=== PATIENT | female | born 1970 | race Caucasian/White ===

== ENCOUNTER → 2018-11-11 08:54 | Outpatient (CLI) | payer OTHER, SELFPAY ==
--- NOTE | 2018-11-11 | PATH_ITS ---
Note [facility] Accession Number: [id number] TESTS RESULT FLAG UNITS REF RANGE LAB Clinician Provided Cytology Information No. of containers..01 ThinPrep Vial No. of containers..10 Previously Prepared Cytology Slide R SUP THYROID NODULE DIAGNOSIS: R SUP THYROID NODULE BENIGN SPECIMEN CONSISTS OF BENIGN FOLLICULAR CELLS, HEMOSIDERIN-LADEN MACROPHAGES, COLLOID, AND BLOOD. THIS PATTERN IS CONSISTENT WITH A COLLOID NODULE. Pathologist ICD10: 02 E04.1 02 Morteza Roger MD, Pathologist NPI- [id number] Nicholas Pat, Special Certificate Dictator ([facility]) 01 30 CC, COLORLESS, CLEAR RECEIVED: 5 ALCOHOL FIXED AND 5 QUICK STAINED SLIDES. /VDU FLAG LEGEND: L-Low Normal,H-High Normal,LL-Alert Low,HH-Alert High <-Panic Low,>-Panic High,A-Abnormal,AA-Critical Abnormal Performed at: 01 =Z [facility] [address], [place] [address] Edmond Purvis MD, 02 [facility] [address] [place] [phone] Marianne Larios MD, Performed at: 01 [facility] [address], [place], [place] [id number] MD Edmond Purvis MD Phone: [phone]
--- NOTE | 2018-11-11 | DI.US.S_ITS ---
PROCEDURE: US FINE NEEDLE ASPIRATION, 2 separate thyroid masses were biopsied, one on the right and one on the left. INDICATIONS: MULTINODULAR GOITER, 2 separate thyroid masses were requested to be biopsied, one on the right and one on the left. TECHNIQUE: The indications, alternatives, benefits, risks, and complications of the procedure were explained to the patient. Written informed consent was obtained and placed in the chart. The thyroid region was examined sonographically and a site was chosen for ultrasound guided percutaneous sampling. The skin was prepared and draped in the usual fashion, and anesthetized with 1% lidocaine infiltrated from the skin down to the thyroid gland. Multiple passes were then performed, with contents emptied into an appropriate pathology specimen container. A bandage was applied to the area of access at completion of the study. The initial biopsy was located at the upper third of the right thyroid lobe and a second biopsy was located at the lower third of the left thyroid lobe COMPARISON: [facility], , US SOFT TISSUE HEAD OR NECK, 10/23/2018, 8:34. FINDINGS: Location(s) of lesion(s) sampled: Lesion #1 was at the upper third of the right thyroid lobe. Lesion #2 was at the lower third of the left thyroid lobe. [place]: 25 gauge hypodermic needles. Number of passes: 6 passes were utilized for each of the 2 separate thyroid masses, 12 total Medications: 1% lidocaine for local anaesthesia. Complications: None. IMPRESSION: Successful ultrasound-guided thyroid nodule fine needle aspiration of 42 separate thyroid masses, as discussed above, one on the right and one on the left. These are labeled #1 and #2, respectively, with cytology results pending. Please see chart below for management recommendations based on cytology results. [facility] ReportingRecommendationsNon-diagnostic* Repeat US-guided FNA, with on-site cytology evaluation if possible. * Repeated non-diagnostic nodules without high suspicion US features: close observation vs surgical consult. * Consider surgery if nodule has high suspicion US features, grows >20% in 2 dimensions on followup, or patient has clinical risk factors for malignancy. Benign* If nodule has high suspicion US features: repeat US and FNA within 12 months. * If nodule has low to intermediate suspicion US features: repeat US at 12-24 months. If nodule grows (20% increase in at least 2 dimensions, with minimal increase of 2 mm or >50% change in volume), or development of new suspicious US features, then repeat FNA or continue followup. * If nodule has very low suspicion US features: followup US at >24 months. Atypia of undetermined significance, follicular lesion of undetermined significanceRepeat FNA, molecular testing, followup US, or surgical consult.Follicular neoplasm, suspicious for follicular neoplasmSurgical consult; also consider molecular testing. Suspicious for malignancySurgical consult.MalignantSurgical consult. Dictated by: Eddie Schulte M.D. on 11/11/2018 at 12:09 Approved by: Eddie Schulte M.D. on 11/11/2018 at 12:12
--- NOTE | 2018-11-11 | PATH_ITS ---
Note [facility] Accession Number: [id number] TESTS RESULT FLAG UNITS REF RANGE LAB Clinician Provided Cytology Information No. of containers..01 ThinPrep Vial No. of containers..08 Previously Prepared Cytology Slide 01 L INF THYROID NODULE DIAGNOSIS: 02 L INF THYROID NODULE BENIGN SPECIMEN CONSISTS OF BENIGN FOLLICULAR CELLS, HEMOSIDERIN-LADEN MACROPHAGES, COLLOID, AND BLOOD. THIS PATTERN IS CONSISTENT WITH A COLLOID NODULE. Pathologist ICD10: 02 E04.1 02 Morteza Roger MD, Pathologist NPI- [id number] Pasquale Rodríguez, Data Support Specialist ([facility]) 01 30 CC, COLORLESS, CLEAR RECEIVED: 4 ALCOHOL FIXED AND 4 QUICK STAINED SLIDES. /VDU FLAG LEGEND: L-Low Normal,H-High Normal,LL-Alert Low,HH-Alert High <-Panic Low,>-Panic High,A-Abnormal,AA-Critical Abnormal Performed at: 01 =Z [facility] [address], [place] [address] Edmond Purvis MD, 02 [facility] [address] [place] [phone] Marianne Larios MD, Performed at: 01 [facility] [address], [place], [place] [id number] MD Edmond Purvis MD Phone: [phone]
== END ==
PROVIDERS: Family Provider Physician Assistant Medical; PCP Physician Assistant Medical; Visit Provider Physician Assistant Medical
DX: E04.2 Nontoxic multinodular goiter (principal)
CPT/HCPCS: 10005; 10006

== ENCOUNTER → 2019-01-20 12:44 | Outpatient (CLI) | payer OTHER, SELFPAY ==
--- NOTE | 2019-01-20 | DI.US.S_ITS ---
LIMITED ULTRASOUND OF LEFT BREAST AND AXILLA: 01/20/2019 CLINICAL: Lt breast palp lumps. Comparison is made to exams dated: 01/20/2019 mammogram, 01/02/2017 ultrasound, 01/02/2017 mammogram - [facility], and 06/21/2012 mammogram - [facility]. Color flow and real-time ultrasound of the left breast 3-5 o'clock, and axilla regions were performed. Powell scale images of the real-time examination were reviewed. No abnormalities were seen sonographically in the left breast. Normal morphology and size of lymph nodes present in the axilla. IMPRESSION: PROBABLY BENIGN No sonographic abnormality to correspond to patients palpable region in the lateral left breast. A follow-up left mammogram in 6 months is recommended to demonstrate stability. Normal axillary contents. Findings and recommendations were conveyed to the patient at time of exam. This exam was interpreted at Station ID: [id number]. Electronically Signed By: Dorinda hernandez/:01/20/2019 14:51:22 copy to: Apolonia Traylor letter sent: Followup Recommended Ultrasound BI-RADS: 3 Probably benign
--- NOTE | 2019-01-20 | DI.MG.S_ITS ---
BILATERAL DIGITAL DIAGNOSTIC MAMMOGRAM 3D/2D: 01/20/2019 CLINICAL: Palpable left breast lump. Comparison is made to exams dated: 08/06/2017 mammogram, 01/02/2017 mammogram - [facility], and [facility]21/[facility]. The tissue of both breasts is heterogeneously dense. This may lower the sensitivity of mammography. No significant masses, calcifications, or other findings are seen in either breast. Normal sized and morphology lymph nodes are seen in the left axilla. IMPRESSION: INCOMPLETE: NEEDS ADDITIONAL IMAGING EVALUATION There are no abnormalities seen in the left breast to correspond with the palpable abnormality at 2 to 3 o'clock in the middle to posterior depth, however, ultrasound is recommended. Normal left axillary lymph nodes appear stable. Ultrasound of left breast and axilla was performed immediately following this exam. This exam was interpreted at Station ID: [id number]. NOTE: For mammograms, a report in lay terms will be sent to the patient. Approximately 15% of breast malignancies will not be visualized mammographically. In the management of a palpable breast mass, a negative mammogram must not discourage biopsy of a clinically suspicious lesion. Electronically Signed By: Dorinda hernandez/:01/20/2019 14:47:25 copy to: Apolonia SINCLAIR BI-RADS Category 0: Incomplete [id number]
== END ==
PROVIDERS: PCP Physician Assistant Medical; Visit Provider Physician Assistant
DX: R92.8 Other abnormal and inconclusive findings on diagnostic imaging of breast (principal); N63.21 Unspecified lump in the left breast, upper outer quadrant
CPT/HCPCS: 76642; 77066; G0279

== ENCOUNTER 2020-05-15 14:11 | Emergency (ER) | payer OTHER, SELFPAY ==
[2020-05-15 14:18] VITALS: BP 179/105; PULSE 100; RESP 16; TEMP 37; O2SAT 100
--- NOTE | 2020-05-15 14:43 | DI.CT.S_ITS ---
PROCEDURE: CT CERVICAL SPINE WO CON INDICATIONS: s/p fell on face tripped on a dog, pain in nose and c spine TECHNIQUE: Noncontrast 3 mm thick sections acquired from the skull base to the T4 level. Sagittal and coronal reformats were then constructed. For radiation dose reduction, the following was used: automated exposure control, adjustment of mA and/or kV according to patient size. COMPARISON: [facility], CT, CT FACIAL BONES WO CON, 05/15/2020, 15:22. FINDINGS: Image quality: Excellent. Bones: No fractures or dislocations. Visualized superior ribs are intact. Degenerative changes are seen, with mild disc space narrowing at C5-C6 and moderate disc space narrowing at C6-C7. Endplate irregularity and sclerosis are seen. Posteriorly projected endplate osteophytes are seen at C6-C7. Soft tissues: Prevertebral soft tissues are normal in thickness. No paravertebral hematomas. No apical pneumothoraces. Low-density nodules are seen involving the thyroid, with the largest seen on the right measuring 2.2 cm. IMPRESSION: Negative for fracture. Cervical spine degenerative changes are seen, which are most prominent at C6-C7. Bilateral thyroid nodules are incidentally noted, with the largest on the right measuring up to 2.2 cm. When clinically appropriate, please consider a dedicated thyroid ultrasound for further evaluation. Dictated by: Dc Jenkins M.D. on 05/15/2020 at 14:32 Approved by: Dc Jenkins M.D. on 05/15/2020 at 14:35
--- NOTE | 2020-05-15 14:43 | DI.CT.S_ITS ---
PROCEDURE: CT FACIAL BONES WO CON INDICATIONS: s/p fell on face tripped on a dog, pain in nose and neck TECHNIQUE: Noncontrast 2.5 mm thick axial images acquired from the mandible through the frontal sinuses, with coronal and sagittal reformatting. For radiation dose reduction, the following was used: automated exposure control, adjustment of mA and/or kV according to patient size. COMPARISON: [facility], CT, CT CERVICAL SPINE WO CON, 05/15/2020, 15:22. [facility], MR, STROKE PROTOCOL, 05/12/2011, 7:49. [facility], CT, HEAD WITHOUT CONTRAST, 05/11/2011, 19:03. FINDINGS: Image quality: Excellent. Bones and teeth: Orbital peres are intact. Sinus peres show no fracture or deformity. There is mild rightward nasal septal deviation seen, which is chronic and is not attributed to an acute injury. Nasal bones and septum are intact. Visualized portions of the mandible demonstrate no fractures or subluxation. Zygomatic arches are intact. Pterygoid plates are intact. Visualized portions of the skull base and auditory canals are intact. The patient is edentulous. A prominent sella turcica can be seen. Sinuses: Paranasal sinuses are aerated, without fluid levels, mucosal thickening, or mucoceles. Mastoid air cells are aerated. Soft tissues: No edema, masses, or fluid collections. No enlarged lymph nodes. No soft tissue lacerations or debris. Vascular: Visualized vascular structures appear normal in the absence of contrast. Bony vascular foramina and canals are intact. IMPRESSION: No displaced fractures are seen, including no displaced nasal bone fractures. A prominent sella turcica is incidentally noted. If this patient has clinical suspicion for a pituitary abnormality, then please consider a dedicated follow-up pituitary protocol MRI (without and with contrast) for further evaluation (assuming that there is no contraindication). Dictated by: Dc Jenkins M.D. on 05/15/2020 at 14:35 Approved by: Dc Jenkins M.D. on 05/15/2020 at 14:37
--- NOTE | 2020-05-15 14:48 | ED_ITS ---
HPI - Fall <West APRIL Valerio - Last Filed: 05/15/20 22:23> General Chief Complaint: Nasal Problem Stated Complaint: tripped over dog/possible broken nose Time Seen by Provider: 05/15/20 14:17 Source: patient Mode of arrival: Ambulatory Limitations: no limitations History of Present Illness HPI Narrative: This is a 50-year-old female, nonsmoker, who has history of chronic low back pain, hypertension, presents to ED with her significant other with chief complain of facial/nose pain and swelling, worsening low back pain, bilateral wrist and knee pain after she accidentally tripped over her dog in dark room and landed on her hands, knees but took the force on nose directly while wearing a glasses. She reports her hands and knees did not protect her from falling on her face. Her glasses flew off of her face while falling. Patient and her spouse heard crack when she fell on the carpeted floor and concerns for nasal fracture. Patient reports is able to move her bilateral w rist and hands without difficulty. She is able to flex and extend her bilateral knees and was able to bear weight. Patient reports slightly increased severity of low back pain but location and characteristic have not changed. Patient states she bled from her nose immediately after the injury which has stopped now by using ice pack. She also complains nausea and headache at this time. Related Data Home Medications Medication Instructions Recorded Confirmed ALBUTEROL SULFATE (Ventolin / 1 - 2 puff INH PRN #0 12/13/09 Proventil) venlafaxine [Effexor XR] 75 mg PO HS #0 05/12/11 buprenorphine [Butrans] 20 mcg TOPICAL QWEEK #0 tdm 06/03/13 metoprolol tartrate 25 mg PO QDAY #0 06/03/13 olopatadine [Patanol] 0.1 % OPHTH #5 ml 06/03/13 ropinirole [Requip] 1 mg PO HS #0 tab 06/03/13 diclofenac sodium [Voltaren] 1 irais TOPICAL #0 08/11/17 acetaminophen-codeine tab 05/15/20 Previous Rx's Medication Instructions Recorded cyclobenzaprine 5 - 10 mg PO BID PRN #7 tab 05/15/20 Allergies Allergy/AdvReac Type Severity Reaction Status Date / Time clindamycin [CLINDAMYCIN] Allergy Unknown GI UPSET, Unverified 12/16/17 11:51 DIARRHEA crab [CRAB] Allergy Unknown THROAT Unverified 12/16/17 11:51 SWELLING Sulfa (Sulfonamide Allergy Unknown Unverified 12/16/17 11:51 Antibiotics) [SULFA (SULFONAMIDE ANTIBIOTICS)] sulfite [SULFITE] Allergy Unknown HIVES Unverified 12/16/17 11:51 bee venom protein (honey bee) Allergy Verified 05/15/20 14:21 Review of Systems <APRIL Dubon - Last Filed: 05/15/20 22:23> Review of Systems Narrative: General: Denies fever, chills, fatigue, malaise, sweats. HEENT: See HPI Respiratory: Denies dyspnea, cough, wheezing, hemoptysis, sputum. Cardiovascular: Denies chest pain, palpitations, orthopnea, edema. Gastrointestinal: Denies (+) nausea, vomiting, abdominal pain, diarrhea, constipation, melena. : Denies dysuria, frequency, incontinence, hematuria, urinary retention. Musculoskeletal: See HPI Skin: Swelling to nose tip and bridge with slight superficial abrasion on nasal bridge. Neurologic: Denies weakness, (+) headache, numbness, change in speech, confusion, seizures, incoordination. Psychiatric: No concerning psychosocial issues. 12-point review of systems is negative except for those stated above. Patient History <APRIL Dubon - Last Filed: 05/15/20 22:23> Medical History Asthma (Acute) Chronic low back pain (Acute) Hypertension (Acute) Social History Smoking Status: Never smoker Smoking Status: Never smoker Substance Use Type: does not use Exam <APRIL Dubon - Last Filed: 05/15/20 22:23> Narrative Exam Narrative: GEN: Alert, oriented x 3, well appearing and nourished, and in no acute distress. Head: Normal cephalic, atraumatic. No scalp or temporal tenderness, palpable mass or rash. EYES: Pupils are equal, round, and reactive to light and accommodation. Extraocular muscles are intact bilaterally. There is no subconjunctival hemorrhage, exudate and sclera non-icteric. ENT: Bilateral auditory canals and tympanic membranes clear or no drainage. Hearing grossly intact. Nose with scant amount nasal bleed from left nares, no purulent discharge or deviation. There is mild swelling to nasal tip. Small abrasion in nasal bridge. Nose exquisitely tender to palpate. Mucous membrane moist, no mucosal lesion. Throat without erythema, tonsillar hypertrophy or exudate. Uvula in midline, airway patent. Neck: Trachea in midline. No JVD, non-tender without lymphadenopathy. No masses or thyroid megaly. Supple and no meningeal signs. Mid cervical tenderness to palpate. No step-offs. CARDIAC: Normal regular rate and rhythm without murmurs, gallops, or rubs. No chest wall tenderness. No peripheral edema, cyanosis or pallor. Capillary refill is less than 2 seconds. RESPIRATORY: Lungs are clear to auscultate bilaterally. No cough, wheezes, rales, or rhonchi. No stridor, respiratory distress, increase work of breathing, or accessary muscle used. ABD: Abdomen soft, nontender and non-distended. No guarding or rebound tenderness to palpate. Bowel sounds are normal in all 4 quadrants. There is no palpable masses or organomegaly. EXT: Full painless ROM of all extremities with no loss of sensation, strength, effusion or edema. SKIN: Warm, dry, normal color for patient. No erythema, lesions or rash over visible areas. BACK: Nontender without deformity or crepitance. No flank tenderness. NEUROLOGICAL: Alert and oriented to place, time and person. Sensation and motor function intact bilaterally. No facial droops, dysphasia. PSYCHIATRIC: Good judgement and reason, without hallucinations, abnormal affect or abnormal behaviors during the examination. Patient is not suicidal. Initial Vital Signs Initial Vital Signs: Vital Signs Temperature 98.6 F 05/15/20 14:18 Pulse Rate 100 H 05/15/20 14:18 Respiratory Rate 16 05/15/20 14:18 Blood Pressure 179/105 H 05/15/20 14:18 Pulse Oximetry 100 05/15/20 14:18 <Afua Gutierrez MD - Last Filed: 05/16/20 20:18> Initial Vital Signs Initial Vital Signs: Vital Signs Temperature 98.6 F 05/15/20 14:18 Pulse Rate 100 H 05/15/20 14:18 Respiratory Rate 16 05/15/20 14:18 Blood Pressure 179/105 H 05/15/20 14:18 Pulse Oximetry 100 05/15/20 14:18 Scores <West BenitezAPRIL murray - Last Filed: 05/15/20 22:23> ABCD2 Citation: Lancet. 2006Oct 03;369(5599):710-80. Validation and refinement of scores to predict very early stroke risk after transient ischaemic attack. Kade SC1, Pily PM, Atilio MN, Bradley MF, Yoni JS, Chacho AL, Pierre S. GCS [place] coma scale eye opening: Spontaneous Timo coma scale verbal response: Orientated Timo coma scale motor response: Obey commands Timo coma scale total score: 15 Nexus Score for C-Spine Focal Neurologic deficit present: No Midline spinal tenderness present: Yes Altered level of conciousness present: No Intoxication present: No Distracting Injury Present: Yes Nexus Criteria for C-spine: 2 Course <APRIL Dubon - Last Filed: 05/15/20 22:23> Orders Ordered: Discontinued Medications Bacitracin (Bacitracin) 1 applic TOP NOW ONE Stop: 05/15/20 16:18 Last Admin: 05/15/20 16:44 Dose: 1 applic Documented by: MINNIE Ibuprofen (Advil) 400 mg PO NOW ONE Stop: 05/15/20 14:46 Last Admin: 05/15/20 15:11 Dose: 400 mg Documented by: MINNIE Ondansetron HCl (Zofran Odt) 4 mg SL NOW ONE Stop: 05/15/20 14:44 Last Admin: 05/15/20 15:11 Dose: 4 mg Documented by: MINNIE Vital Signs Vital signs: Vital Signs - 8 hr 05/15/20 14:18 05/15/20 16:44 Temperature 98.6 F Pulse Rate 100 H 74 Respiratory Rate 16 Blood Pressure 179/105 H 137/92 H Pulse Oximetry 100 100 <Afua Gutierrez MD - Last Filed: 05/16/20 20:18> Orders Ordered: Discontinued Medications Bacitracin (Bacitracin) 1 applic TOP NOW ONE Stop: 05/15/20 16:18 Last Admin: 05/15/20 16:44 Dose: 1 applic Documented by: MINNIE Ibuprofen (Advil) 400 mg PO NOW ONE Stop: 05/15/20 14:46 Last Admin: 05/15/20 15:11 Dose: 400 mg Documented by: MINNIE Ondansetron HCl (Zofran Odt) 4 mg SL NOW ONE Stop: 05/15/20 14:44 Last Admin: 05/15/20 15:11 Dose: 4 mg Documented by: MINNIE Vital Signs Vital signs: Vital Signs - 8 hr 05/15/20 14:18 05/15/20 16:44 Temperature 98.6 F Pulse Rate 100 H 74 Respiratory Rate 16 Blood Pressure 179/105 H 137/92 H Pulse Oximetry 100 100 MDM - Fall <APRIL Dubon - Last Filed: 05/15/20 22:23> Differential Diagnosis Differential diagnosis: Likely other (Nasal fracture, nasal contusion, C-spine fracture, neck strain, knee and wrist strain) Medical Records Attestation: I reviewed the patient's medical records. Imaging Data CT-Face: Radiologist's Impression: [place] [address] CT Scan Report Signed Patient: Tricia Jaramillo R#: [id number] : 1970Acct:[id number] Age/Sex: 50 / FDate of Service: 05/15/20 Loc: ED Accession Number: [id number] Procedure: CT facial bones wo con Ordering Provider: West Valerio PROCEDURE: CT FACIAL BONES WO CON INDICATIONS: s/p fell on face tripped on a dog, pain in nose and neck TECHNIQUE: Noncontrast 2.5 mm thick axial images acquired from the mandible through the frontal sinuses, with coronal and sagittal reformatting. For radiation dose reduction, the following was used: automated exposure control, adjustment of mA and/or kV according to patient size. COMPARISON: [facility], CT, CT CERVICAL SPINE WO CON, 05/15/2020, 15:22. [facility], MR, STROKE PROTOCOL, 05/12/2011, 7:49. [facility], CT, HEAD WITHOUT CONTRAST, 05/11/2011, 19:03. FINDINGS: Image quality: Excellent. Bones and teeth: Orbital peres are intact. Sinus peres show no fracture or deformity. There is mild rightward nasal septal deviation seen, which is chronic and is not attributed to an acute injury. Nasal bones and septum are intact. Visualized portions of the mandible demonstrate no fractures or subluxation. Zygomatic arches are intact. Pterygoid plates are intact. Visualized portions of the skull base and auditory canals are intact. The patient is edentulous. A prominent sella turcica can be seen. Sinuses: Paranasal sinuses are aerated, without fluid levels, mucosal thickening, or mucoceles. Mastoid air cells are aerated. Soft tissues: No edema, masses, or fluid collections. No enlarged lymph nodes. No soft tissue lacerations or debris. Vascular: Visualized vascular structures appear normal in the absence of contrast. Bony vascular foramina and canals are intact. IMPRESSION: No displaced fractures are seen, including no displaced nasal bone fractures. A prominent sella turcica is incidentally noted. If this patient has clinical suspicion for a pituitary abnormality, then please consider a dedicated follow-up pituitary protocol MRI (without and with contrast) for further evaluation (assuming that there is no contraindication). Dictated by: Dc Jenkins M.D. on 05/15/2020 at 14:35 Approved by: Dc Jenkins M.D. on 05/15/2020 at 14:37 CT- C spine: Radiologist's Impression: [place] [address] CT Scan Report Signed Patient: Tricia Jaramillo R#: [id number] : 1970Acct:[id number] Age/Sex: 50 / FDate of Service: 05/15/20 Loc: ED Accession Number: [id number] Procedure: CT cervical spine wo con Ordering Provider: West Valerio PROCEDURE: CT CERVICAL SPINE WO CON INDICATIONS: s/p fell on face tripped on a dog, pain in nose and c spine TECHNIQUE: Noncontrast 3 mm thick sections acquired from the skull base to the T4 level. Sagittal and coronal reformats were then constructed. For radiation dose reduction, the following was used: automated exposure control, adjustment of mA and/or kV according to patient size. COMPARISON: [facility], CT, CT FACIAL BONES WO CON, 05/15/2020, 15:22. FINDINGS: Image quality: Excellent. Bones: No fractures or dislocations. Visualized superior ribs are intact. Degenerative changes are seen, with mild disc space narrowing at C5-C6 and moderate disc space narrowing at C6-C7. Endplate irregularity and sclerosis are seen. Posteriorly projected endplate osteophytes are seen at C6-C7. Soft tissues: Prevertebral soft tissues are normal in thickness. No paravertebral hematomas. No apical pneumothoraces. Low-density nodules are seen involving the thyroid, with the largest seen on the right measuring 2.2 cm. IMPRESSION: Negative for fracture. Cervical spine degenerative changes are seen, which are most prominent at C6-C7. Bilateral thyroid nodules are incidentally noted, with the largest on the right measuring up to 2.2 cm. When clinically appropriate, please consider a dedicated thyroid ultrasound for further evaluation. Dictated by: Dc Jenkins M.D. on 05/15/2020 at 14:32 Approved by: Dc Jenkins M.D. on 05/15/2020 at 14:35 [facility] Narrative Medical decision making narrative: This is a 50-year-old female who fell on her face after she tripped on a dog in a dark room and complaining of pain in nose, head and nausea. No loss of consciousness, vomiting, vision change, unusual behaviors, or seizures. Patient has no focal neurological deficit. Mild mid cervical tenderness to palpate during exam. Nexus C-spine score was 2. Patient was medicated with Zofran and ibuprofen and she had taken her own T3. Applied rigid C-collar after the exam. CT test of facial bones does not show displaced facial fractures including nasal bones. Incidental finding of prominent sella turcica. CT C-spine was negative for fracture but shows DJD at C6-7. Incidental findings of bilateral thyroid nodule with the largest on the right measuring up to 2.2 cm. Pain improved after the medication regimen with improved nausea. Has been using cool packs on her face which has been helping. Findings were discussed with patient and advised to follow with her primary care physician including incidental findings. Patient discharged to home with small dose of Flexeril for muscle relaxant with precautions. Patient advised to use [id number] ibuprofen and her own pain medication regimen. Return precautions were discussed with patient and patient verbalized understanding and agreement with treatment plan. Discharge Plan Departure Patient Disposition: Home Clinical Impression: Contusion of nose, initial encounter Cervical strain Qualifiers: Encounter type: initial encounter Qualified Code(s): S16.1XXA - Strain of muscle, fascia and tendon at neck level, initial encounter Fall Qualifiers: Encounter type: initial encounter Qualified Code(s): W19.XXXA - Unspecified fall, initial encounter Discharge Date/Time: 05/15/20 16:45 Instructions: DI for Contusion Activity Restrictions/Additional Instructions: You have been diagnosed with [nasal contusion and neck strain from a fall. Facial and C spine CT test no nasal fractures or C spine fractures or dislocations. Incidental finding of prominent sella turcia and and enlarged right side thyroid ]. What to do: *Take your medications as directed. You can use your Tylenol 3 and Butrans as needed. You can add [id number] ibuprofen 400-600 mg up to 3 to 4 times a day as needed for pain and inflammation but with food to decrease GI irritation. Please use cool pack on your face to decrease swelling and and pain. Please sleep with slightly increased head of bed to help with swelling. Please follow- up with your primary care physician on tetanus immunization tomorrow. Will transmit Flexeril for muscle relaxant to [facility] in [place]. This can cause drowsiness so please take precaution not driving, drink alcohol or operating heavy equipments. *Follow up with your primary care provider in 2-3 days, call for an appointment. Let them know you were seen in the ED and that we asked you to be seen in follow up. *Return to ED if you have any new, worsening, or concerning symptoms, such as [chest pain, breathing difficulty, unable to tolerate fluids, fever, signs of infection on nose, worsening pain or any acute concerns]. Prescriptions: New cyclobenzaprine 10 mg tablet 5 - 10 mg PO BID PRN (Reason: muscle spasm) Qty: 7 RF: 0 No Action ALBUTEROL SULFATE (Ventolin / Proventil) 1 - 2 puff INH PRN Qty: 0 RF: 0 venlafaxine [Effexor XR] 75 MG capsule,extended release 24hr 75 mg PO HS Qty: 0 RF: 0 ropinirole [Requip] 1 MG tablet 1 mg PO HS Qty: 0 RF: 0 metoprolol tartrate 25 MG tablet 25 mg PO QDAY Qty: 0 RF: 0 buprenorphine [Butrans] 20 MCG patch weekly 20 mcg Topical QWEEK Qty: 0 RF: 0 olopatadine [Patanol] 5 ML drops 0.1 % OPHTH Qty: 5 RF: 0 diclofenac sodium [Voltaren] 1 % gel 1 irais Topical Qty: 0 RF: 0 acetaminophen-codeine 300-30 mg tablet RF: 0 Referrals: Apolonia Traylor PA-C [Primary Care Provider] - <Afua Gutierrez MD - Last Filed: 05/16/20 20:18> Cosign ED Attending Cosignature Attestation: I was immediately available in the department for consultation throughout this patient's visit. I agree with documentation as above. Afua Gutierrez MD
[2020-05-15] MEDS: IBUPROFEN 400 MG TABLET PO (15:11)
[2020-05-15] MEDS: ONDANSETRON 4 MG ODT SL (15:11)
[2020-05-15 16:44] VITALS: BP 137/92; PULSE 74; O2SAT 100
[2020-05-15] MEDS: BACITRACIN OINT 0.9 GM PCKT 1 APPLIC TOP (16:44)
== END 2020-05-15 16:45 | disposition home or self-care (01) ==
PROVIDERS: Emergency Provider Nurse Practitioner Family; PCP Physician Assistant Medical
DX: S16.1XXA Strain of muscle, fascia and tendon at neck level, initial encounter (principal); S00.33XA Contusion of nose, initial encounter; S00.31XA Abrasion of nose, initial encounter; W19.XXXA Unspecified fall, initial encounter; M54.5 Low back pain; I10 Essential (primary) hypertension; R51 Headache; R11.0 Nausea
CPT/HCPCS: 70486; 72125; 99284

== ENCOUNTER → 2021-08-23 09:04 | Outpatient (CLI) | payer OTHER, SELFPAY ==
--- NOTE | 2021-08-23 | DI.RAD.S_ITS ---
PROCEDURE: FL BARIUM SWALLOW W SPEECH INDICATIONS: Dysphagia, unspecified COMPARISON: None. TECHNIQUE: Examination was conducted in conjunction with speech pathology per standard protocol. In the lateral projection, filming was performed of the patient swallowing. AP projection filming may also be performed with patient swallowing. COMPARISON: FINDINGS: Function: The oral preparatory phase appears normal, with proper containment. The subsequent oral propulsive phase, pharyngeal phase appear normal with all proffered substances. No laryngotracheal penetration or aspiration. No pathologic vallecular pooling. There is delayed transit through the lower esophagus. There is diminished peristaltic waves. A barium tablet was held up at the gastroesophageal junction. This was despite several drinks of water. There was a small sliding-type hiatal hernia visualized. Morphology: No cricopharyngeal bar is identified. No cervical esophageal webs. No Zenker's diverticulum. IMPRESSION: 1. No aspiration. 2. Delayed transit at the lower esophagus. Diminished peristaltic waves. 3. Small hiatal hernia. 4. Barium tablet was held up at the gastroesophageal junction. This raises the possibility of GE junction narrowing or stricture. Please see separately dictated speech pathologist's report. Dictated by: Michael Escalante M.D. on 08/23/2021 at 10:50 Approved by: Michael Escalante M.D. on 08/23/2021 at 10:54
--- NOTE | 2021-08-23 14:12 | ST.SWALLOW ---
Visit Care Team Role Provider Type Apolonia Traylor PA-C Attending Provider Non-Staff Primary Care Provider Referring Provider Specialty: Medical Address: [address] [place] [address] [address], [place], [address] Email: Modified Barium Swallow Study FORENSIC INVESTIGATOR Modified Barium Swallow Study Start: 08/23/21 10:18 Freq: Status: Active Protocol: Document 08/23/21 10:28 LNK (Rec: 08/23/21 12:25 LNK [id number]) Modified Barium Swallow Study Total Time Visit Start Time 09:30 Visit Stop Time 10:05 Total Visit Minutes 35 Referral Referring Physician Apolonia Traylor PA-C Reason for Referral pain with swallowing Setting Setting Outpatient Care Patient Information Identification Type Name,Date of Patient History Pt was seen for a Modified Barium Swallow Study (MBSS) secondary to a sensation of pain when she swallows. Pt described swallowing as going well until the food gets stuck at mid-chest level. She reported pain that can be so intense that she will make herself vomit to relieve it. Other times, when she is experiencing pain, she can wait and the food will eventually moves slowly to her stomach. Pt noted that this pain has been occurring for ~ 2 years on a daily basis. Pt denied a PMH of relux, neck surgery or injury, or hiatal hernia. Subjective Observations Pt reported that she was nervous as she might vomit. An emisis bag was provided to the pt. She was seated in the fluoroscopy chair. The directions and procedure were described for her, which she indicated she understood and was agreeable to proceed. Patient Positioning Position View Lat-A/P Imaging Lateral View Textures Administered Trials Presented Thin Liquid via Spoon,Thin Liquid via Cup,Pudding Thick Liquid via Spoon,Regular Textures Oral Phase Source: MBSIMP (TM) (C) Bolus Specific Scoring Grid Lip Closure No Impairment (WNL) Tongue Control During Bolus Hold No Impairment (WNL) Bolus Prep/Mastication No Impairment (WNL) Bolus Transport/Lingual Motion No Impairment (WNL) A/P Lingual Propulsion Delay No Oral Residue No Impairment (WNL) Residue Clearing No Impairment (WNL) Nasal Regurgitation No Additional Oral Phase Observations OME results indicated the pt's structures, strength and ROM were WNL. Pt has upper and lower dentures with implants for denture security. ORAL PHASE: Pt demonstrated oral phase of swallowing WNL. Mastication was good with rotary chew, A-P transition, bolus control and hold were WNL. Pharyngeal Phase Source: MBSIMP (TM) (C) Bolus Specific Scoring Grid Delayed Initiation of Pharyngeal Swallow No Soft Palate Elevation No Impairment (WNL) Tongue Base Strength/Range of Motion Minimal Impairment Residue Along the Tongue Base No Laryngeal Elevation No Impairment (WNL) Anterior Hyoid Movement Minimal Impairment Epiglottic Range of Motion WFL Vallecular Residue Yes Clearance of Vallecular Residue Minimal Impairment Laryngeal Vestibular Closure WFL Pharyngeal Stripping Wave No Impairment (WNL) Pharyngeal Contraction No Impairment (WNL) Posterior Pharyngeal Wall Residue No Upper Esophageal Sphincter Opening Mild Impairment Residue in the Pyriform Sinuses No Esophageal Clearance Upright Position Moderate Impairment Pharyngoesophageal Backflow Observed No Additional Pharyngeal Phase Observations Laryngeal elevation was WNL; hyoid movement forward was minimally impaired resulting in valecullar pooling following swallows. Tongue base movement and strength were adequate to invert epiglottis. Seal of the laryngeal vestibule was good. No penetration or aspiration of the contrast was observed. Minimal valecullar pooling of contrast was observed. The distension and duration of the UES appeared to be mildly impaired with esophageal residue visible. Overall pt demonstrated pharyngeal functioning WFL A/P View Textures Administered Trials Presented Thin Liquid via Cup,Pudding Thick Liquid via Spoon,Barium Tablet A/P View Observations Residue Observed Valleculae Right,Valleculae Left Esophageal Function Slowed Clearing,Stasis, Narrowing Esophageal Clearance Upright Position Moderate Impairment Esophageal Observations Esophageal Function An esophageal screening was performed in the A-P position with thin, pudding thick barium and a barium tablet. There is delayed transit through the lower esophagus. Diminished peristalsis of all substances trialed was noted. Pt reported discomfort when the boluses slowed at the level of her heart. Trial barium tablet was also indicated slowed transition through the lower esophagus. The tablet stopped at the gastroesophageal junction for several minutes despite several sips of water. The pt expressed discomfort. A small sliding-type hiatal hernia was visualized. See radiologist report. Clinical Impressions Dysphagia Type Esophageal phase; No oropharyngeal dysphagia observed Patient Appropriate for Therapy No Recommendations Treatment Plan Recommended Referrals GI Consult
== END ==
PROVIDERS: PCP Physician Assistant Medical; Referring Provider Physician Assistant Medical; Visit Provider Physician Assistant Medical
DX: R13.10 Dysphagia, unspecified (principal); K44.9 Diaphragmatic hernia without obstruction or gangrene
CPT/HCPCS: 74230; 92611